=== PATIENT | male | born 1955 | race Caucasian/White ===

== ENCOUNTER 2021-09-18 03:14 | Emergency (ER) | payer MEDICARE ==
[~2021-09-18 03:14] MED LIST: CRESTOR20 MG PO; ISOSORBIDE MONO30 MG PO; LISINOPRIL-HCT1 EAC1 PO; PLAVIX 75 MG TA75 MG PO; PROTONIX40 MG PO; SOTALOL80 MG PO; VITAMIN C500 M4 PO; VITAMIN D31250 MCG PO
[2021-09-18 03:52] LABS: HEMOGLOBIN 14.1 gm/dl (14.0-17.5); RED BLOOD COUNT 4.73 M/UL (4.20-5.50); WHITE BLOOD COUNT 11.3 K/UL (4.5-11.0)
[2021-09-18 04:15] LABS: BUN/CREATININE RATIO 18 (0-10)
[2021-09-18] MEDS ORDERED: AMOX TR-K CLV1 EAC4 PO (17:53)
[2021-09-19] MEDS ORDERED: NITROSTAT0.4 MG SL (10:47)
[2021-09-19] MEDS ORDERED: LISINOPRIL40 MG PO (17:54)
[2021-09-19] MEDS ORDERED: ZETIA10 MG PO (17:57)
[2021-09-19] MEDS ORDERED: AMLODIPINE BESYL5 MG PO (17:58)
[2021-09-19] MEDS ORDERED: HYDROCHLOROTH12.5 MG PO (17:59)
[2021-09-19] MEDS ORDERED: ALLERGY RELIEF180 MG PO (18:00)
== END 2021-09-18 10:40 | disposition home or self-care (01) ==
LOC: ER1 03:14
PROVIDERS: Physician Assistant
DX: K81.9 Cholecystitis, unspecified (principal); E87.6 Hypokalemia; R07.89 Other chest pain; I11.9 Hypertensive heart disease without heart failure; E78.5 Hyperlipidemia, unspecified; Z20.822 Contact with and (suspected) exposure to COVID-19; Z95.1 Presence of aortocoronary bypass graft; Z85.828 Personal history of other malignant neoplasm of skin; Z88.6 Allergy status to analgesic agent
CPT/HCPCS: 0240U; 71045; 76705; 80053; 81001; 82150; 82550; 82553; 83690; 83880; 84484; 85025; 85379; 85610; 85730; 87086; 93005; 96374; 99284; J2270; J7030; Q9967

== ENCOUNTER 2021-09-19 09:37 | Observation (INO) | payer MEDICARE ==
[~2021-09-19] VITALS: Ht 177.8 cm; Wt 83.9 kg
[~2021-09-19 09:37] MED LIST changes: +AMOX TR-K CLV1 EAC4 PO
[2021-09-19 10:07] LABS: HEMOGLOBIN 15.4 gm/dl (14.0-17.5); RED BLOOD COUNT 4.91 M/UL (4.20-5.50)
[2021-09-19 10:08] LABS: WHITE BLOOD COUNT 20.6 K/UL (4.5-11.0)
[2021-09-19 10:39] LABS: BUN/CREATININE RATIO 11 (0-10)
[2021-09-19] MEDS ORDERED: NITROSTAT0.4 MG SL (10:47)
[2021-09-19] MEDS ORDERED: LISINOPRIL40 MG PO (17:54)
[2021-09-19] MEDS ORDERED: ZETIA10 MG PO (17:57)
[2021-09-19] MEDS ORDERED: AMLODIPINE BESYL5 MG PO (17:58)
[2021-09-19] MEDS ORDERED: HYDROCHLOROTH12.5 MG PO (17:59)
[2021-09-19] MEDS ORDERED: ALLERGY RELIEF180 MG PO (18:00)
[2021-09-20 11:02] LABS: RED BLOOD COUNT 4.46 M/UL (4.20-5.50); WHITE BLOOD COUNT 18.7 K/UL (4.5-11.0)
[2021-09-20 11:06] LABS: HEMOGLOBIN 13.3 gm/dl (14.0-17.5)
[2021-09-20 11:23] LABS: BUN/CREATININE RATIO 15 (0-10)
== END 2021-09-20 13:42 | disposition home or self-care (01) ==
LOC: ER1 09:37 → CDU 11:18 → MED SURG 4 20:20
PROVIDERS: Emergency Medicine; ADMIT Surgery
PROC: 0FT44ZZ Resection of Gallbladder, Percutaneous Endoscopic Approach (ICD-10-PCS; principal; 2021-09-19 17:29)
DX: K80.00 Calculus of gallbladder with acute cholecystitis without obstruction (principal); U07.1 COVID-19; I25.10 Atherosclerotic heart disease of native coronary artery without angina pectoris; I10 Essential (primary) hypertension; I48.91 Unspecified atrial fibrillation; E78.5 Hyperlipidemia, unspecified; K21.9 Gastro-esophageal reflux disease without esophagitis; I25.2 Old myocardial infarction; Z79.02 Long term (current) use of antithrombotics/antiplatelets; Z79.899 Other long term (current) drug therapy; Z88.0 Allergy status to penicillin; Z88.6 Allergy status to analgesic agent; Z91.09 Other allergy status, other than to drugs and biological substances; Z95.1 Presence of aortocoronary bypass graft; Z95.5 Presence of coronary angioplasty implant and graft
CPT/HCPCS: 36415; 80053; 81001; 83690; 85025; 85027; 96374; 96375; 99285; G0378; J0690; J0696; J1100; J1170; J2001; J2270; J2405; J2543; J2704; J2710; J3010; J7030; J7120; U0002